=== PATIENT | female | born 1975 | race Caucasian/White ===

== ENCOUNTER 2017-07-23 10:02 | Day surgery (SDC) | payer SELFPAY ==
[2017-07-21 12:29] VITALS: BMI 29.2
[2017-07-23 10:35] LABS: BASO # 0.04 K/mm3 (0.0-2.0); EOS # 0.2 (0.0-0.7); EOS % 5.1 % (1.5-5.0); GRAN # 0.91 (1.4-6.5); GRAN % 23.5 % (50.0-68.0); HEMOGLOBIN 13.4 g/dL (12.0-16.0); LYMPH % 51.9 % (22.0-35.0); MEAN CELL VOLUME 85.3 fl (80.0-105.0); MEAN CORPUSCULAR HEMOGLOBIN 28.1 pg (25.0-35.0); MEAN CORPUSCULAR HGB CONC 32.9 g/dl (31.0-37.0); MONO # 0.7 (0.1-0.6); MONO % 18.5 % (1.0-6.0); RBC 4.77 10^6/uL (3.5-6.1); RED CELL DISTRIBUTION WIDTH 13.7 % (11.5-14.5); WHITE BLOOD COUNT 3.9 10^3/ul (4.5-11.0)
[2017-07-23 10:46] LABS: INR 0.97 (0.93-1.08); PARTIAL THROMBOPLASTIN TIME 25.1 Seconds (25.1-36.5); PROTHROMBIN TIME 11.2 SECONDS (9.4-12.5)
[2017-07-23 10:53] LABS: BLOOD UREA NITROGEN 8 mg/dL (7-21); CALCIUM 9.3 mg/dL (8.4-10.5); GFR AFRICAN-AMERICAN > 60; GFR NON-AFRICAN AMERICAN > 60
[2017-07-23] MEDS ORDERED: Lidocaine 1% Inj (20ml) ONE (12:32)
[2017-07-23] MEDS ORDERED: Midazolam 2 MG/2 ML VIAL ONE (12:32)
[2017-07-23] MEDS ORDERED: Oxycodone/Acetaminophen 5/325 mg Tab PO PRN (13:32)
[2017-07-23] MEDS ORDERED: Sodium Chloride 0.45% 1,000 ML IV SCH (13:45)
[2017-07-23 14:43] VITALS: BP 113/73; PULSE 75; RESP 20; TEMP 98.4; O2SAT 95
[2017-07-23] MEDS ORDERED: Oxycodone/Acetaminophen 5/325 mg Tab PO ONE (14:54)
[2017-07-23] MEDS ORDERED: Oxycodone/Acetaminophen 5/325 mg Tab ONE (14:54)
--- NOTE | 2017-07-23 15:44 | US ---
PROCEDURE: Ultrasound-guided right thyroid fine needle aspiration biopsy. CLINICAL HISTORY: Hypothyroid. Heterogeneous gland. Dominant 2.4 cm right thyroid nodule. Evaluate for malignancy PHYSICIAN(S): Everton Paniagua M.D. TECHNIQUE: The relative risks and indications for the procedure were explained to the patient and consent obtained. The patient was placed supine on the stretcher with the neck extended and preliminary sonography of the thyroid performed. The thyroid is heterogeneous in echotexture. There is a dominant 2.4 cm heterogeneous hypoechoic nodule in the right thyroid The neck was prepped and draped in the usual sterile fashion. Conscious sedation and monitoring were provided throughout the procedure by a nurse. 1% Xylocaine was used to anesthetize the skin and soft tissues at the access site. Three passes with a 22-gauge needle were performed under ultrasound guidance for fine needle aspiration of the 2.4 cm hypoechoic nodule in the right thyroid. The slides were reviewed by pathology and deemed adequate. The patient tolerated the procedure well. IMPRESSION: 1. Ultrasound guided fine needle aspiration of a 2.4 cm hypoechoicnodule in the right thyroid.
== END 2017-07-23 15:32 | disposition home or self-care (01) ==
LOC: SDS 10:02
PROVIDERS: ATTEND Radiology Vascular & Interventional Radiology
DX: E06.3 Autoimmune thyroiditis (principal)
CPT/HCPCS: 10022; 36415; 80048; 84703; 85025; 85610; 85730; 88173; 88305; J2250; J2405; J3010; J7030

== ENCOUNTER 2018-04-25 10:36 | Outpatient (CLI) | payer SELFPAY | END 2018-04-25 10:37 | disposition home or self-care (01) | LOC: LAB 10:36 ==

== ENCOUNTER → 2018-06-13 | Outpatient (CLI) | payer SELFPAY | LOC: LAB 10:03 ==

== ENCOUNTER 2018-06-20 09:32 | Outpatient (CLI) | payer OTHER | END 2018-06-20 09:33 | disposition home or self-care (01) | LOC: RAD 09:32 | DX: M54.5 Low back pain (principal) ==